=== PATIENT | female | born 1945 | race Caucasian/White ===

== ENCOUNTER 2016-11-05 12:49 | Observation (INO) | payer OTHER ==
[~2016-11-05] VITALS: Ht 172.7 cm; Wt 68.0 kg
--- NOTE | 2016-11-05 09:04 | MH ---
cc: KAREN CHAVEZ DMD DATE OF ADMISSION: 11/05/2016 DATE OF 1945 HISTORY OF PRESENT ILLNESS Ms. Lynch had seen me originally August 17, 2016 for an evaluation of a blocked salivary gland on the right side/neck area. 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 Her complaint was of discomfort to that area but no significant pain at that time. But she also says that it has a flare up at least twice a year to the gland. No previous intervention or treatment was done. She was only treated with antibiotics. The right submandibular gland is enlarged and the CT scan it shows it has silolithiasis, salivary gland stones. She is going to need surgical resection and removal of the gland. The benefits, risks, indication of the procedure, the procedure in detail and the options of no treatment including alternatives were discussed with this patient. Risks not limited to any postop pain, infection, bleeding, damage to the adjacent soft tissue, hard tissue, anesthesia complications, cosmetic defect, nerve involvement, including sensory/motor nerve deficits, all questions and concerns were addressed. PAST MEDICAL HISTORY Hypercholesteremia. MEDICATIONS Simvastatin. PAST SURGICAL HISTORY Tonsillectomy at age 7 or 8. Anesthesia problems unknown. AND DEVELOPMENT Normal. INFECTIOUS DISEASE Denied. ALLERGIES NO KNOWN DRUG ALLERGIES. FAMILY HISTORY Mother had history of heart disease. Father history of a couple of strokes, enlarged heart. OCCUPATIONAL HISTORY Home status is normal. SOCIAL HISTORY Smokes tobacco. Denies any alcohol. REVIEW OF SYSTEMS Weight 150 pounds, height 5 feet 8 inches. No significant recent weight loss. HEAD: Occasional headaches. Denies any dizziness, injury or any seizures. EYES: Denies any vision problem, double vision, tearing or any blind spots. Reports vision is normal. NOSE: Denies any bleeding, obstruction or discharges. MOUTH: Denies any dental difficulties. THROAT: Denies any hoarseness, soreness or any thyroid disease. LYMPH NODES: The right submandibular gland is enlarged. RESPIRATORY: Denies any TB, any shortness of breath, any coughing. Denies any asthma, any COPD and sleep apnea. CARDIOVASCULAR: Denies any pericardial pain. Denies any hyper or hypotension. Denies any murmurs, shortness of breath excursion. Denies edema. Denies phlebitis, rheumatic fever, any heart surgeries. GASTROINTESTINAL: Denies any gallbladder, IBS, any peptic ulcer disease. GENITOURINARY: Denies any UTI, any kidney disease, any venereal disease. MUSCULOSKELETAL: Denies any pain, limitation of movement or muscular weakness. ENDOCRINE: Denies any diabetes mellitus, any hormone therapy, any growth disturbances. HEMATOLOGICAL: Denies any anemia, any bleeding tendencies, any Rh compatibilities. Denies any blood transfusions. NEUROLOGICAL: Denies any sensory or motor disturbances. MENSTRUATION: Denies frequency, periods duration are nonapplicable. Not . Has two children. Denies any . PHYSICAL EXAMINATION VITAL SIGNS: Pulse is 68, blood pressure is 140/76, oxygen saturations are 99%. ASA is 2. GENERAL: Alert, awake and oriented x3 in no acute distress. HEENT: Head is normocephalic. Eyes, pupils equal, round and reactive to light and accommodation. Extraocular movements are intact. Nose is symmetrical. Airway is patent. Mouth Mallampati 2. No elevation of floor of the mouth or the tongue. Good dentition noted. There are no stones noted on through the duct especially on the right side. Able to stimulate salivary flow though it is decreased. NECK: Right neck submandibular region edema involving the gland. It is well-circumscribed at the region of the gland. No tenderness to palpation today. The trachea is midline. The right neck submandibular mass is firm and approximately 3 cm. CARDIOVASCULAR: Regular rate and rhythm. RESPIRATORY: Clear to auscultation bilaterally. ABDOMEN: Nontender, nondistended, soft. GI: Positive bowel sounds. EXTREMITIES: Positive range of movement upper extremities, lower extremities. NEUROLOGICAL: Cranial nerves II-XII grossly intact. IMAGING STUDIES The CT scan of the soft tissues of the neck shows a right submandibular gland, multiple stones all noted and the gland enlarged. The report from radiologist cluster of calculi within the right Harmon's duct. The larger measuring 1-cm in greatest dimension with surrounding inflammatory soft tissue and proximal duct dilation with swelling of the submandibular gland and mild induration of region, plaque placed around the gland. IMPRESSION AND PLAN Ms. Lynch has a longstanding history of the right submandibular gland enlargement, blocked gland. Been there for approximately 10 years. History of discomfort to that site. This flares up at least twice a year. She has got multiple stones into that gland. It is going to require surgical removal of the gland, any structures involving the gland. She has right submandibular gland sialolith/sialolithiasis. Plan is for excision of the gland. Benefits, risks, indications of the procedure portion in detail were all discussed with this patient including the options of no treatment. All questions and concerns were addressed. Karen Chavez DMD RRT/LUZ /4:02 PM /8:56 AM TIA
[~2016-11-05 12:49] MED LIST: LACTATED RINGER'S 1000 ML INJ 1,000 ML IV ONE; NEOSTIGMINE 3 MG/3 ML SYR IV ONE; ONDANSETRON HCL 4 MG/2 ML VIAL IV PUSH ONE; PROPOFOL 200 MG/20 ML AMP IV ONE; ePHEDrine/NS 25 MG/5 ML SYR IV ONE
[2016-11-05] MEDS ORDERED: SIMV40TA PO (13:38)
[2016-11-05 13:41] VITALS: BP 143/75; PULSE 50; RESP 20; TEMP 98.2; O2SAT 99
[2016-11-05] MEDS ORDERED: ceFAZolin INJ 1,000 MG VIAL ONE (13:52)
[2016-11-05] MEDS ORDERED: SODIUM CHLORIDE 0.9% INJ 100 ML ONE (13:52)
[2016-11-05] MEDS ORDERED: ceFAZolin 1,000 MG/NS 100 ML IV SCH ×2 (14:15)
[2016-11-05] MEDS ORDERED: MICROFIBRILLAR COLLAGEN HEMOSTAT 70 X 35 MM BANDAGE ONE (14:23)
[2016-11-05] MEDS ORDERED: GELFOAM SIZE 100 ONE (14:24)
[2016-11-05] MEDS ORDERED: LIDOCAINE 1%/EPINEPHrine 1:100,000 SOLN 50 ML VIAL ONE (14:29)
[2016-11-05] MEDS ORDERED: SODIUM CHLORID 0.9% 500 ML IV PRN (14:30)
[2016-11-05] MEDS ORDERED: POVIDONE IODINE 5% (ANTISEPSIS KIT) 4 APPLICATIONS EACH NARE PRN (14:30)
[2016-11-05] MEDS ORDERED: LACTATED RINGER'S 1000 ML IV PRN (14:30)
[2016-11-05] MEDS ORDERED: INSULIN HUMAN REGULAR 1,000 UNITS/10 ML VIAL SQ PRN (14:30)
[2016-11-05] MEDS ORDERED: METOPROLOL TARTRATE 25 MG TAB PO PRN (14:30)
[2016-11-05] MEDS ORDERED: CHLORHEXIDINE GLUCONATE 2 % 1 PACK (2 CLOTHS) TOPICAL PRN (14:30)
[2016-11-05] MEDS: LIDOCAINE 2%/EPINEPHrine 1:100,000 30ML MDV ONE ×2 (14:52→15:33)
[2016-11-05] MEDS ORDERED: MIDAZOLAM HCL 2 MG/2 ML VIAL ONE (15:16)
[2016-11-05] MEDS ORDERED: fentaNYL CITRATE 250 MCG/5 ML AMP ONE (15:16)
[2016-11-05] MEDS ORDERED: CHLORHEXIDINE GLUCONATE 0.12% 30 ML CUP ONE (15:33)
--- NOTE | 2016-11-05 17:06 | HHI.PR ---
Immediate Post Op Note Procedure Date: Nov 05, 2016 Pre Op Diagnosis: sialolithiasis/enlarged right submandibular gland Post Op Diagnosis: matt Surgeon: Glenn Chavez Maintenance Chief(s): Procedure: Removal of right submandibular gland and stones Findings: enlarged submandibular gland, stones right [place] duct Complications: none Specimen(s) removed: right submandibular gland, duct stones Estimated blood loss: 15 cc Anesthesia: General, Local (2%lidocaine with 1:100,000 epi approx 6 cc) Drains: [place] (1 08/01 incj marvin right neck) Patient to: PACU Patient Condition: Good Date/Time of Procedure: SEE SURGICAL CARE RECORD Glenn Chavez DMD Nov 05, 2016 17:06
[2016-11-05] MEDS ORDERED: *LABETALOL HCL 100 MG/20 ML VIAL PERIprocedural Use ONLY ONE (17:11)
[2016-11-05] MEDS: SODIUM CHLOR 0.9% 1000 ML INJ 1,000 ML IV SCH (17:18)
[2016-11-05] MEDS ORDERED: *morphine SULFATE 8 MG/ML PERIprocedure ONLY ONE (17:25)
[2016-11-05] MEDS: methylPREDNISolone SOD SUCC 125 MG/2 ML VIAL IV SCH ×2 (17:29→21:50)
[2016-11-05] MEDS ORDERED: methylPREDNISolone SOD SUCC 125 MG/2 ML VIAL ONE (17:29)
[2016-11-05] MEDS ORDERED: DO NOT ADM ANY ANTICOAGULANT DRUGS PRN (17:30)
[2016-11-05] MEDS ORDERED: MORPHINE SULFATE 4 MG/ML INJ IV PRN (17:45)
[2016-11-05] MEDS ORDERED: ONDANSETRON HCL 4 MG/2 ML VIAL IV PUSH PRN (17:45)
[2016-11-05] MEDS ORDERED: *ONDANSETRON 4 MG VIAL PERIprocedural Use ONLY ONE (17:56)
[2016-11-05] MEDS ORDERED: PROMETHAZINE HCL 25 MG SUPP RECTAL ONE ×2 (18:10→18:30)
[2016-11-05 21:32] VITALS: BP 162/76; PULSE 65; RESP 18; TEMP 96.8; O2SAT 98
[2016-11-05] MEDS: ceFAZolin 1,000 MG/NS 100 ML IV SCH ×2 (21:48)
[2016-11-05] MEDS: ACETAMINOPHEN 325MG/HYDROcodone 7.5MG/15ML UDC PO PRN (22:12)
[2016-11-06 00:14] VITALS: BP 125/61; PULSE 71; RESP 18; TEMP 96; O2SAT 96
[2016-11-06 02:19] VITALS: O2SAT 94
[2016-11-06 04:00] VITALS: BP 129/61; PULSE 68; RESP 18; TEMP 96; O2SAT 93
[2016-11-06] MEDS: SODIUM CHLOR 0.9% 1000 ML INJ 1,000 ML IV SCH (04:20)
[2016-11-06] MEDS: ACETAMINOPHEN 325MG/HYDROcodone 7.5MG/15ML UDC PO PRN (05:26)
[2016-11-06] MEDS: ceFAZolin 1,000 MG/NS 100 ML IV SCH ×2 (05:26)
[2016-11-06] MEDS ORDERED: methylPREDNISolone ACETATE 80 MG/ML VIAL IM ONE (06:00)
--- NOTE | 2016-11-06 07:48 | HHI.PR ---
Subjective Remarks POD 1 s/p removal of right submandibular gland and salivary stones pt seen and examined, AAOx3 , nad ambulating, voiding, tolerating po no complaints, hungry, wants to go home Objective Vital Signs Date Time Temp Pulse Resp B/P Pulse Ox O2 Delivery O2 Flow Rate FiO2 11/06/16 04:00 96.0 68 18 129/61 93 11/06/16 02:19 94 11/06/16 00:14 96.0 71 18 125/61 96 11/05/16 21:32 96.8 65 18 162/76 98 11/05/16 19:50 97.6 61 15 150/75 98 Nasal Cannula 2 11/05/16 19:00 59 15 147/69 98 Nasal Cannula 2 11/05/16 18:40 97.5 58 15 153/71 97 Nasal Cannula 2 11/05/16 18:20 60 14 152/76 98 11/05/16 18:15 64 14 164/73 98 Nasal Cannula 2 11/05/16 18:00 61 14 155/76 97 Nasal Cannula 2 11/05/16 17:45 63 14 176/67 97 Nasal Cannula 2 11/05/16 17:30 63 14 150/72 97 Nasal Cannula 2 11/05/16 17:15 70 14 169/81 97 Nasal Cannula 2 11/05/16 17:10 85 14 180/87 97 11/05/16 17:00 85 14 170/79 98 Nasal Cannula 2 11/05/16 16:59 98.4 85 14 172/80 98 Nasal Cannula 2 11/05/16 13:41 98.2 50 20 143/75 99 I/O 11/05/16 11/05/16 11/05/16 11/06/16 11/06/16 11/06/16 07:00 15:00 23:00 07:00 15:00 23:00 Intake Total 1275 ml Output Total 15 ml Balance 1260 ml Intake Oral 50 ml IV Total 325 ml Other 900 ml Output Estimated Blood Loss 15 ml # Voids 0 Objective Remarks neck dressing in place hemostatic, steri strips in place marvin drain in place right neck no neck edema, trach midline intraorally, tissues pink well perfused no elevation fom or tongue Assessment and Plan Assessment and Plan pod 1 s/p removal of right submandibular gland and stones ok to d/c to home today f/up dr jesse solizorrow [phone] soft diet no strenuous activity/exercises keep dressing dry, can shower neck down rx - in chart keflex 500 mg #15, hydrocodone 5/325 #15 and peridex rinse continue home meds Glenn Chavez DMD Nov 06, 2016 07:48
[2016-11-06 08:00] VITALS: BP 128/65; PULSE 71; RESP 20; TEMP 97.6
--- NOTE | 2016-11-06 21:24 | MP ---
cc: KAREN CHAVEZ DMD DATE OF SURGERY: 11/05/2016 PREOPERATIVE DIAGNOSIS: Sialolithiasis / enlarged right submandibular gland. POSTOPERATIVE DIAGNOSIS Sialolithiasis / enlarged right submandibular gland. PROCEDURE: Right submandibular gland and stones. ANESTHESIA General also 2% lidocaine with 1:100,000 epinephrine approximately [address] Chavez [employer]PL[employer]MENT AG[employer]Y MANAGER Dr. Monae. ESTIMATED BLOOD LOSS: Approximately 15 cc. COMPLICATIONS: None. DISPOSITION: The patient tolerated the procedure well, extubated and taken to the PACU. SPECIMEN: Right submandibular gland with duct stones. INDICATIONS FOR PROCEDURE This is a 71-year-old female with approximately a ten year history of right submandibular edema, discomfort and swelling several times a year. She has salivary gland stones noted into the gland into the right Roland's duct. It has a history of getting infections and should only be treated by antibiotics. Now she finally consents to having the gland removed and the stones are getting larger and multiple stones are noted. Benefits, risks, indications of the procedure, the procedure in detail and the options of no treatment were discussed with this patient. The risks not limited to any postop pain, infection, bleeding, damage to the adjacent soft tissue, hard tissue, anesthesia complications, numbness, nerve involvement including taste, functional nerve, cosmetic defect, further surgeries as required. Consent is signed and is in the chart. PROCEDURE IN DETAIL The patient was met in the preop holding area. The past medical history was reviewed and updated, no changes noted. All questions and concerns were addressed. The right side of the operated site was now marked. The patient was taken to operating suite #9, placed on the table in the supine position. She underwent oral intubation. Eyes were taped shut. All pressure points were padded at this point. At this time a time out was taken to identify the patient, the site, the procedure, and surgeon all were in agreement. A shoulder roll was now placed in the back of the shoulder. I went to the sink to scrub and came back wearing sterile attire. The patient draped in normal sterile fashion. Betadine prep has already been done over the operative site of the right face and neck site. Examination under anesthesia once again shows this enlarged right submandibular gland that is easily palpable and noticeable in the right side of the neck. Bite block was placed gently in the left side of the mouth. Mouth was irrigated with Peridex solution. I used a lacrimal probe just to a small double zero just to find the entry of the duct, and as I go in there I am able to just encounter the stones. A marking pen was now used to identify the angle of the mandible all the way down to the inferior border of the mandible to the chin. Once this was done, the outline of the gland was also marked. Multiple wrinkle lines was noted on the right side of the neck. Using at least 2 cm two fingerbreadths wide of the inferior border of the mandible and where one of the wrinkle lines were, made an incision with the 15 blade. We used the 15 blade to go down to the fat. Once this was done, the fat was identified, then I used the Bovie to start dissecting down to the multiple planes of fascia, once I hit the platysma and then slowly going down the sub-platysma layer. Now I began to suture using a dissecting scissors including Metzenbaums and using Bovie in separate layers. At this point, I encountered the facial vein and then it was clipped, cauterized and the ligated, and tied off with 2-0 silk suture in the superior and inferior aspect. I kept on dissecting around the gland, freeing up from the inferior aspect, medial, lateral and then going up superiorly. At this point I encountered the facial artery. At this point, then again with the hemostats clipped in the superior and inferior aspect of it, cauterized this in the center and then using a 2-0 silk suture ligated the superior and the inferior aspect of that facial artery and tied them off. Once this was done, I kept on again dissecting around the gland, cognizant of that mental nerve. The nerve was not noted. Any loose bleeders were cauterized and any small little vessels were tied off. Inferior border of the mandible was kept for orientation. Finally we dissected around the gland and finally the gland was freed after dissection. The gland was removed in its entirety. Again we went back into the mouth. We can palpate the floor of the mouth and then when we did this, the salivary stones keep coming out of where the duct was, and removed the salivary stones. Any mucous and the tissues all just drained out, mucous/saliva. Once this was done multiple pieces of the stones including the large one was expressed out. We sent that for a biopsy along with the submandibular gland. Once this was done all the sites were irrigated with Peridex solution and saline solution, including the gland/duct of the gland. Once this was done, the gland/duct was now tied off with 4-0 Vicryl suture. The right side of the neck was irrigated with saline solution. A small stab incision was made on the right side of the neck and a 1/4 inch and Margot drain was inserted through that stab incision and placed inside the region where the gland was. Finally 4-0 Vicryl sutures were used from the deeper layers, started to reapproximate the soft tissue including the platysma, the fat layer, the subcuticular and then the skin was now closed with 5-0 Prolene suture. Mastisol was placed around the incision site and Steri-Strips was placed over the site, 4x4 gauze was placed and a dressing was wrapped around the neck operative site. The mouth was stable. No heme noted. Everything is stable in the neck and the mouth at this point. The mouth was once again irrigated with Peridex solution. The back of the throat was suctioned. the bite block was removed. The patient on the procedure well. No complications noted. All sponge and needle counts were all accounted for. The patient will be kept tonight for observation, pain control, and plan for discharge tomorrow morning. Karen Chavez DMD SHEET MUSIC SALESPERSON/DALILA /5:01 PM /8:46 PM TIA
== END 2016-11-06 11:36 | disposition home or self-care (01) ==
LOC: HSDC 12:49 → N05B 20:10
PROVIDERS: ADMIT Dentist Oral and Maxillofacial Surgery; ATTEND Dentist Oral and Maxillofacial Surgery
DX: K11.5 Sialolithiasis (principal); K11.23 Chronic sialoadenitis
CPT/HCPCS: 00100; 42335; 88307; G0378; J0690; J1040; J2250; J2270; J2405; J2710; J2930; J3010; J7030; J7120; 88305